=== PATIENT | male | born 1965 | race Caucasian/White ===

== ENCOUNTER 2020-06-30 00:42 | Inpatient (IN) | payer BC ==
[~2020-06-30] VITALS: Ht 172.7 cm; Wt 72.3 kg
[~2020-06-30 00:42] MED LIST: FINA1TAB PO
[2020-06-30] MEDS ORDERED: HYDROMORPHONE 1 MG/1 ML DISP.SYRIN IV ONE (01:00)
[2020-06-30] MEDS ORDERED: IV NORMAL SALINE 1000 ML BAG IV ONE (01:00)
[2020-06-30] MEDS ORDERED: ONDANSETRON 4 MG/2 ML VIAL IV ONE (01:00)
[2020-06-30] MEDS ORDERED: ONDANSETRON 4 MG/2 ML VIAL ONE (01:02)
[2020-06-30] MEDS ORDERED: HYDROMORPHONE 2 MG/1 ML DISP.SYRIN ONE (01:03)
[2020-06-30 01:10] LABS: BASOPHILS # (AUTO) 0.1 K/uL (0.0-8.0); BASOPHILS % (AUTO) 0.5 % (0.0-2.0); EOSINOPHILS % (AUTO) 0.2 % (0.0-7.0); HEMATOCRIT 50.1 % (36.7-47.1); HEMOGLOBIN 17.1 g/dL (12.5-16.3); LYMPHOCYTES # (AUTO) 2.1 K/uL (20.0-40.0); LYMPHOCYTES % (AUTO) 18.6 % (20.5-51.5); MEAN CORPUSCULAR HEMOGLOBIN 31.8 uug (23.8-33.4); MEAN CORPUSCULAR HGB CONC 34 g/dL (32.5-36.3); MEAN CORPUSCULAR VOLUME 93.2 fL (73.0-96.2); MONOCYTES # (AUTO) 0.7 K/uL (2.0-10.0); NEUTROPHILS # (AUTO) 8.4 K/uL (1.8-8.9); NEUTROPHILS % (AUTO) 74.7 % (38.5-71.5); PLATELET COUNT (AUTO) 274 K/uL (152-348); RED BLOOD CELL COUNT(AUTO) 5.37 MIL/uL (4.06-5.63); WHITE BLOOD COUNT (AUTO) 11.3 K/uL (3.6-10.2)
[2020-06-30 01:16] LABS: CREATININE 1.5 mg/dL (0.6-1.3); POTASSIUM 3.7 mmol/L (3.5-5.1)
[2020-06-30 01:20] LABS: BILIRUBIN,DIRECT 0.2 mg/dL (0.0-0.2); BILIRUBIN,TOTAL 0.8 mg/dL (0.2-1.0); TOTAL PROTEIN, SERUM 7.7 g/dL (6.4-8.2)
--- NOTE | 2020-06-30 02:08 | NUR ---
Pt. admitted to Telemetry, under care of Dr. Balderrama. Diagnosis: Small Bowel Obstruction Belongs List completed
[2020-06-30] MEDS ORDERED: ACETAMINOPHEN 325 MG TABLET PO PRN (02:15)
[2020-06-30] MEDS ORDERED: HYDROCODONE/APAP 5-325MG TABLET PO PRN (02:15)
[2020-06-30] MEDS ORDERED: MAGNESIUM HYDROXIDE 30 ML LIQUID UDC PO PRN (02:15)
[2020-06-30] MEDS ORDERED: MORPHINE SULFATE 2 MG/1 ML DISP.SYRIN IV PRN (02:15)
[2020-06-30] MEDS ORDERED: Z GUARD REMEDY PASTE 57 GM TUBE TOP PRN (02:15)
[2020-06-30 02:21] LABS: *BILIRUBIN,URIN NEGATIVE (NEGATIVE); *BLOOD, URINE NEGATIVE (NEGATIVE); *CLARITY,URINE CLOUDY (CLEAR); *COLOR,URINE YELLOW (YELLOW); *KETONES,URINE NEGATIVE (NEGATIVE); *UROBILINOGEN,URINE 0.2 E.U./dl (NORMAL); LEUKOCYTE ESTERASE ,URINE NEGATIVE (NEGATIVE); NITRITE, URINE NEGATIVE (NEGATIVE); PH,URINE 8.5 (5.0-8.0); UGLUCOSE NEGATIVE (NEGATIVE)
[2020-06-30] MEDS: ONDANSETRON 4 MG/2 ML VIAL IV PRN ×3 (02:25→18:11)
[2020-06-30 02:33] LABS: BACTERIA,URINE NONE SEEN /HPF (NONE SEEN); RBC,URINE 0-3 /HPF (0-3); SQUAMOUS EPITHELIAL CELL,UR NONE SEEN /HPF (NONE SEEN); WBC,URINE 0-3 /HPF (0-3)
[2020-06-30 02:34] LABS: URINE AMORPHOUS PHOSPHATES MANY /HPF
--- NOTE | 2020-06-30 03:25 | NUR ---
Admitted a 54 years old male with Dx of SBO. Patient AAOx4. In no acute distress. Stated abdominal pain starting again, right now about 1/10 and described as aching pain. Deferred pain medication at this time. Denies any nausea or vomiting during admission. IV site on right AC intact and patent. Sinus zelda on tele at 48/min. NPO status and bedrest. Routine admission care done. Plan of care initiated. Safety measure initiated and call mendez within reached.
[2020-06-30] MEDS: IV D5 1/2 NS 1000 ML 1,000 ML IV PRN ×3 (03:39→20:24)
[2020-06-30 03:57] VITALS: BP 123/79
--- NOTE | 2020-06-30 06:40 | NUR ---
Dr Ballard called and order for patient to have STAT Small Bowel follow through, Dx SBO and to use 50/50 mix Barium and water soluble contrast. Order read back and verified. Informed X-ray tech Fredy and states understanding. Informed patient of the procedure and patient signed consent form.
--- NOTE | 2020-06-30 06:46 | NUR ---
Patient AAOx4. In no acute distress. No nausea or vomiting reported. IV site on right AC intact and patent. IVF infusing. Sinus zelda on tele at 48/min. NPO status and bedrest. Safety measure maintained and call mendez within reached.
--- NOTE | 2020-06-30 07:30 | NUR ---
Received patient in bed awake alert and oriented times 4. Patient denies any SOB, N/V. Patient report pain in the abdomen. Will check eMAR for available pain medications. Patient is NPO per diagnosis. Safety measures in place, call light and belongings are within reach. Will continue to monitor.
[2020-06-30] MEDS ORDERED: MORPHINE SULFATE 4 MG/1 ML DISP.SYRIN IV PRN (08:15)
[2020-06-30] MEDS ORDERED: BARIUM SULFATE 340 GM ONE (08:30)
[2020-06-30] MEDS ORDERED: DIATR MEGLU/DIATRIZOATE SODIUM 30 ML BOTTLE ONE (08:30)
[2020-06-30] MEDS ORDERED: PANTOPRAZOLE SODIUM IV 40 MG in IV DEXTROSE 5% 100 ML IV SCH (09:00)
[2020-06-30] MEDS: PANTOPRAZOLE SODIUM 40 MG VIAL IV SCH ×2 (09:23→20:17)
--- NOTE | 2020-06-30 11:30 | NUR ---
Pt is complaining of sever abdominal pain. He is moaning and yelling. MD made aware. Order for dilaudid given to charge nurse. Will continue to monitor.
[2020-06-30 11:32] VITALS: BP 146/85
[2020-06-30] MEDS: HYDROMORPHONE 1 MG/1 ML DISP.SYRIN IV PRN ×4 (11:48→21:19)
[2020-06-30 16:00] VITALS: BP 149/92
--- NOTE | 2020-06-30 18:40 | NUR ---
Inserted NG tube with intermittent low suctions according to Dr Ballard's TO. Pt tolerated procedure well and is hooked up to suction. Will continue to monitor.
--- NOTE | 2020-06-30 19:00 | NUR ---
Patient output after NG tube insertion is 500 ccs. Suction is working properly. Will continue to monitor.
--- NOTE | 2020-06-30 19:25 | NUR ---
Patient in bed awake ,alert x 4.HOB elevated .Patient has NGt with intermittent low suction.Denies Pain at this time. No n/v .On Ra.No s/s of distress noted. Iv on right AC 18 patent and intact with IVF running at 125 cc/hr.Tolerated well.On NPO status. SB on tele .Will continue to monitor.
[2020-06-30 20:00] VITALS: BP 134/85
[2020-07-01] VITALS: BP 139/60
[2020-07-01] MEDS: HYDROMORPHONE 1 MG/1 ML DISP.SYRIN IV PRN ×4 (00:21→10:53)
[2020-07-01] MEDS: ONDANSETRON 4 MG/2 ML VIAL IV PRN (00:45)
[2020-07-01 04:00] VITALS: BP 141/89
[2020-07-01] MEDS: IV D5 1/2 NS 1000 ML 1,000 ML IV PRN (04:14)
--- NOTE | 2020-07-01 05:49 | NUR ---
Patient slept intermittently in no acute distress noted., still c/o abdominal pain. Diluadid IVP given .Ng tube on low intermittent suction with gastric output greenish in color.HOB elevated at all times.Aspiration precaution observed.Patient remains NPO.SB on tele . All needs anticipated and met accordingly.
[2020-07-01 06:01] LABS: BASOPHILS % (AUTO) 0.2 % (0.0-2.0); HEMATOCRIT 47.9 % (36.7-47.1); HEMOGLOBIN 16.4 g/dL (12.5-16.3); LYMPHOCYTES # (AUTO) 1.2 K/uL (20.0-40.0); LYMPHOCYTES % (AUTO) 11.8 % (20.5-51.5); MEAN CORPUSCULAR HEMOGLOBIN 32.2 uug (23.8-33.4); MEAN CORPUSCULAR HGB CONC 34 g/dL (32.5-36.3); MEAN CORPUSCULAR VOLUME 93.9 fL (73.0-96.2); NEUTROPHILS # (AUTO) 8.2 K/uL (1.8-8.9); PLATELET COUNT (AUTO) 266 K/uL (152-348); WHITE BLOOD COUNT (AUTO) 10.5 K/uL (3.6-10.2)
[2020-07-01 06:12] LABS: CREATININE 1.2 mg/dL (0.6-1.3); MAGNESIUM 2.2 mg/dL (1.8-2.4); PHOSPHOROUS 3.7 mg/dL (2.5-4.9); POTASSIUM 3.6 mmol/L (3.5-5.1)
[2020-07-01] MEDS ORDERED: KETOROLAC TROMETHAMINE 30 MG INJ IVP ONE (06:45)
[2020-07-01] MEDS ORDERED: HYDROMORPHONE 1 MG/1 ML DISP.SYRIN IV PRN (07:30)
--- NOTE | 2020-07-01 07:30 | NUR ---
Received patient in bed awake, alert and oriented times 4. No sign of distress noted. Patient denies any SOB. NG tube in place and is draining on intermittent low suction. Pt is also running D5 1/2 NS at 125 mls/hr. Safety precautions are in place. Will continue to monitor.
[2020-07-01] MEDS ORDERED: ONDANSETRON 4 MG/2 ML VIAL IV ONE (08:25)
[2020-07-01] MEDS ORDERED: METOCLOPRAMIDE HCL 10 MG/2 ML VIAL IV ONE ×2 (08:25)
[2020-07-01] MEDS ORDERED: NEOSTIGMINE METHYLSULFATE 10 MG/10 ML VIAL IM ONE (08:25)
[2020-07-01] MEDS ORDERED: GLYCOPYRROLATE 0.2 MG/ML VIAL MC ONE (08:25)
[2020-07-01] MEDS ORDERED: PROPOFOL 200 MG/20 ML BOTTLE IV ONE (08:25)
[2020-07-01] MEDS: PANTOPRAZOLE SODIUM 40 MG VIAL IV SCH ×2 (08:29→21:09)
[2020-07-01 11:35] VITALS: BP 126/94
--- NOTE | 2020-07-01 15:30 | NUR ---
Patient picked up by surgery and taken to the OR. Will monitor when patient is back on the floor.
[2020-07-01 15:35] VITALS: BP 128/93
[2020-07-01] MEDS ORDERED: FENTANYL CITRATE 250 MCG/5 ML AMPUL ONE (15:46)
[2020-07-01] MEDS ORDERED: MIDAZOLAM HCL 2 MG/2 ML VIAL ONE (15:46)
[2020-07-01] MEDS ORDERED: HYDROMORPHONE 2 MG/1 ML DISP.SYRIN ONE (15:47)
[2020-07-01] MEDS ORDERED: ROCURONIUM BROMIDE 50 MG/5 ML VIAL ONE (15:47)
[2020-07-01] MEDS ORDERED: SEVOFLURANE 250 ML BOTTLE ONE (15:52)
[2020-07-01] MEDS ORDERED: BUPIVACAINE/EPI PF 0.5% 10 ML VIAL ONE (16:05)
[2020-07-01] MEDS ORDERED: METRONIDAZOLE 500 MG/NS 100 ML PIGGYBACK IV ONE (16:09)
[2020-07-01] MEDS ORDERED: CLINDAMYCIN PHOSPHATE 600 MG/4 ML VIAL ONE (16:14)
[2020-07-01] MEDS ORDERED: BUPIVACAINE 0.25% 30 ML VIAL ONE (16:14)
[2020-07-01] MEDS ORDERED: MEPERIDINE 25 MG/1 ML DISP.SYRIN ONE (17:46)
[2020-07-01 18:55] VITALS: BP 123/73
--- NOTE | 2020-07-01 19:15 | NUR ---
Received patient back from surgery. No sign of distress noted. Patient is talking and alert. Denies any pain. MD orders placed in the computer. Patient is on 3 L NC. Patient still has NG tube and is hooked up to low intermittent suction. Safety measures are in place. Will endorse to the night nurse.
[2020-07-01 20:03] VITALS: BP 129/87
--- NOTE | 2020-07-01 20:11 | NUR ---
Patient in bed .alert x4 with O2 at 3LPM via NC .No s/s of distress noted. NG tube in place with low intermittent suction.No output at this time. HOB elevated.S/p laparoscopy .Incision site clean and dry. No drainage noted.NPO status.Per patient he feels much better and no c/o pain at this time. at bedside. Vss .SAfety measures in place. Will continue to monitor.
[2020-07-02] VITALS: BP 121/61
[2020-07-02] MEDS: IV D5 1/2 NS 1000 ML 1,000 ML IV PRN (02:07)
[2020-07-02 04:03] VITALS: BP 125/75
[2020-07-02 05:36] LABS: BASOPHILS % (AUTO) 0.5 % (0.0-2.0); EOSINOPHILS % (AUTO) 0.4 % (0.0-7.0); HEMATOCRIT 39.7 % (36.7-47.1); HEMOGLOBIN 13.3 g/dL (12.5-16.3); LYMPHOCYTES # (AUTO) 1.7 K/uL (20.0-40.0); LYMPHOCYTES % (AUTO) 25.2 % (20.5-51.5); MEAN CORPUSCULAR HEMOGLOBIN 31.6 uug (23.8-33.4); MEAN CORPUSCULAR HGB CONC 34 g/dL (32.5-36.3); MEAN CORPUSCULAR VOLUME 94.4 fL (73.0-96.2); MONOCYTES # (AUTO) 0.9 K/uL (2.0-10.0); MONOCYTES % (AUTO) 13.3 % (0.0-11.0); NEUTROPHILS # (AUTO) 4.1 K/uL (1.8-8.9); NEUTROPHILS % (AUTO) 60.6 % (38.5-71.5); PLATELET COUNT (AUTO) 201 K/uL (152-348); RED BLOOD CELL COUNT(AUTO) 4.21 MIL/uL (4.06-5.63); WHITE BLOOD COUNT (AUTO) 6.7 K/uL (3.6-10.2)
[2020-07-02 05:42] LABS: CREATININE 1.1 mg/dL (0.6-1.3); POTASSIUM 3.7 mmol/L (3.5-5.1)
--- NOTE | 2020-07-02 06:08 | NUR ---
Patient awake.Denies pain at this time. Remains NPO.Assisted to bathroom ,voided well.Patient removed thigh high LUCILLE and intermittent pneumatic CD pump. Stated "it feels uncomfortable at this time".Reinforced teaching ,explained risk and benefits. patient still refused.Per patient he will let the nurse knows if he wants it back. SB on tele.Will endorse to oncoming shift.
--- NOTE | 2020-07-02 06:31 | NUR ---
Removed Ng tube.Tolerated well .Patient no longer NPo and made aware of his clear liquids diet and KUB this morning .
--- NOTE | 2020-07-02 07:30 | NUR ---
Patient report received from traffic monitor specialist. Patient seen resting in bed. Alert and oriented x 4. Patient has 3 incisional mccann on the lower abdomen from Laparoscopy. Patient is sinus rhythm on TELE. Comfortable on room air. No reports of pain or shortness of breath. Patient able to pass flatus and ambulate. Safety precautions in place. Bed in low and locked position. Call light within reach.
[2020-07-02] MEDS: PANTOPRAZOLE SODIUM 40 MG VIAL IV SCH (09:01)
[2020-07-02 09:09] VITALS: BP 133/83
[2020-07-02 11:24] VITALS: BP 160/99
[2020-07-02 12:30] VITALS: BP 131/76
--- NOTE | 2020-07-02 12:30 | NUR ---
Patient being discharged home. In stable condition. Vital signs with in normal limits. Patient denies pain and shortness of breath. Pt able to have a bowel movement prior to discharge. AO x 4. Sinus rhythm on TELE. Patient discharge instructions given. Belongings returned and reviewed with patient. Patient eager to go home.
== END 2020-07-02 13:15 | disposition home or self-care (01) | DRG 335 ==
LOC: ER 00:44 → TELE3 03:15
PROVIDERS: ADMIT Internal Medicine; ATTEND Internal Medicine
PROC: 0DN84ZZ Release Small Intestine, Percutaneous Endoscopic Approach (ICD-10-PCS; principal; 2020-07-01)
DX: K56.51 Intestinal adhesions [bands], with partial obstruction (principal); N17.0 Acute kidney failure with tubular necrosis; N40.0 Benign prostatic hyperplasia without lower urinary tract symptoms; N28.1 Cyst of kidney, acquired; D72.829 Elevated white blood cell count, unspecified; Z20.822 Contact with and (suspected) exposure to COVID-19
CPT/HCPCS: 36415; 70030-TC; 71045; 74018; 74250; 83690; 83735; 84100; 85025; 85730; 93005; A4649; A4663; C9113; G0378; J1170; J2175; J2250; J2270; J2405; J2765; J3010; J3490; J7030; J7042; Q9963; Q9967